=== PATIENT | male | born 1975 | race African-American/Black ===

== ENCOUNTER 2024-11-10 20:00 | Emergency (ER) | payer MEDICARE ==
[2024-11-10] MEDS ORDERED: Acetaminophen 500 MG TAB ONE (20:35)
[2024-11-10 20:55] LABS: #Basophils 0.07 10x3/uL (0.0-0.2); #Eosinophils 0.12 10x3/uL (0.0-0.7); #Monocytes 0.53 10x3/uL (0.11-0.59); #Neutrophils 4.18 10x3/uL (1.40-6.50); %Basophils 1.0 % (0.0-1.0); %Eosinophils 1.8 % (0.0-10.0); %Lymphocytes 27.0 % (21.0-51.0); %Monocytes 7.9 % (0.0-10.0); %Neutrophils 62.0 % (42.0-75.0); Hematocrit 42.8 % (42.0-52.0); Hemoglobin 14.3 g/dL (14.0-18.0); Mean Corpuscular Hemoglobin 30.4 pg (27.0-31.0); Mean Corpuscular Volume 91.1 fL (78.0-98.0); Platelet Count 132 10x3/uL (130-400); Red Blood Cell (RBC) Count 4.70 mill/uL (4.70-6.10); White Blood Cell (WBC) Count 6.74 10x3/uL (4.8-10.8)
[2024-11-10 21:10] LABS: INR-International Normal Ratio 1.0; PTT 22.9 sec (22.9-36.1); Prothrombin Time 13.4 sec (12.0-14.7)
[2024-11-10 21:19] LABS: ALT (SGPT) 110 U/L (Less than 45); AST (SGOT) 107 U/L (11-34); Albumin 4.0 g/dL (3.1-4.5); Alkaline Phosphatase 69 U/L (40-110); Anion Gap 18 mmol/L (10-20); BUN (Urea Nitrogen) 6 mg/dL (8.9-20.6); Bilirubin, Total 0.4 mg/dL (0.3-1.2); Calc. Creatinine Clearance 0 mL/min (70-130); Calcium 9.3 mg/dL (7.8-10.44); Carbon Dioxide 19 mmol/L (22-29); Chloride 106 mmol/L (98-107); Globulin 3.7 g/dL (2.4-3.5); Glucose 98 mg/dL (70-105); Lipase 57 U/L (8-78); Potassium 3.8 mmol/L (3.5-5.1); Sodium 139 mmol/L (136-145)
== END 2024-11-10 21:50 | disposition home or self-care (01) ==
LOC: ERS 20:00
DX: S01.81XA Laceration without foreign body of other part of head, initial encounter (principal); S80.811A Abrasion, right lower leg, initial encounter; V89.2XXA Person injured in unspecified motor-vehicle accident, traffic, initial encounter
CPT/HCPCS: 12013; 70450; 71045; 72125; 80053; 80307; 83690; 85025; 85610; 85730; 93005; 94760; 99285; G0390